=== PATIENT | female | born 1985 | race Caucasian/White ===

== ENCOUNTER 2021-12-15 16:16 | Emergency (ER) | payer MEDICAID, SELFPAY ==
[2021-12-15 16:36] VITALS: BP 158/89; PULSE 80; RESP 18; TEMP 36.7; O2SAT 99
--- NOTE | 2021-12-15 18:55 | ED.GENADUL_ITS ---
Discharge Plan Disposition Patient Disposition: HOME Condition: Good Discharge Details Clinical Impression: Dog bite of lower leg Primary Care Provider: Efrain Mitchell ED Provider: Constanza Basilio Discharge Instructions Instructions: Amoxicillin/Clavulanate Potassium (By mouth), Animal Bite (ED) Additional Instructions: Keep wound clean, dry, covered. May wash with running water and soap that she typically would. Please monitor for signs infection including redness, warmth, drainage, increased pain, fever/chills. If you develop these or other new/wo rsening symptoms to seek care urgently with again. Otherwise, continue take the Augmentin twice a day for the next 7 days. Please return in 10 days for suture removal. Referrals: Efrain Mitchell [Primary Care Provider] - Discharge Data Discharge Date/Time-TO BE ENTERED AT DEPARTURE: 12/15/21 20:51 Medical Decision Making Patient is a pleasant 35 year old female, brought in by , with c/c of dog bite to the RLE. She knows the recreation director, was working at their house at the time of the incident. States dog is UTD on vaccines, this has bene reported. She is unsure on her own vaccination status. She deneis other injury at the time of the incident. Was wearing jeans, broke skin through this. Denies numbness, tingling. No difficulty with ROM or ambulation. On exam, patient appears nontoxic. She has a 4cm curvilinear, flap laceration to the RLE. Smaller wound, likely from lower jaws, lateral to this that is more superficial. Surrounding ecchymosis. Neurovascularly intact. Patient and I discussed wound care in depth. While typically we do not close bite wounds, the wound edges are quite distracted from one another. I feel that loose approximation would be most appropriate. Patient and I discussed this in depth, particularly with regard to infection risk. Will place on abx, patient needs liquid. Wound base is able to be easily visualized, I do not see FB or debris and do not feel that imaging is warranted at this time. bite did occur through clothing. She and I discussed risks/benefits and expected procedural steps of loose closure. she is aware that she will still have scaring as this will be a functional closure rather than cosmetic. She voices understanding and wishes to proceed. Please see procedure note. Wound was cleansed by nursing staff prior to myself. I also copiously irrigated the wound and explored to base in a a bloodless field. Again, no FB or debris noted. Wound edges were loosely reapproximated with gaps between using horizontal mattress stitches. Patient started on augmentin. No tetanus on file, so this was updated today. We discussed wound care in depth. Encouraged that she return with new/worsneing issues, particulary sxs of infeciton. She will otherwise return for wound eval and suture removal. All of her questions and concerns were addressed, she is in agreement with austin madera. HPI General Date/Time Provider Initiated Documentation: 12/15/21 18:05 . Limitations to Documentation: no limitations . Information obtained by: patient, family and RN notes reviewed . History of Present Illness 35 year old F presents to the emergency department with the chief complaint of dog bite RLE, described as moderate, Quality is described as aching, and is localized to the right and lower extremity. Patient reports no radiation. Patient started experiencing this minute(s) and it has been constant. Immobilization improves symptom(s), Movement worsens symptoms . Patient notes no other symptoms.. Patient did receive the following treatments prior to arrival, none Related Data Allergies Allergy/AdvReac Type Severity Reaction Status Date / Time No Known Allergies Allergy Unverified 12/15/21 16:39 General Stated Complaint: AnimalBite SONIDO: 3 Review of Systems Constitutional Constitutional: Reports as per HPI, Denies chills and Denies fever(s) Musculoskeletal Musculoskeletal: Reports as per HPI Integumentary/Breasts Skin/Breast: Reports as per HPI Neurologic Neurologic: Reports as per HPI, Denies sensory deficit and Denies paresthesias [facility] All Active Problems (Updated 12/15/21 @ 20:24 by MACKENZIE Ruvalcaba) Dog bite of lower leg (Acute) Social History Smoking/Tobacco Use Status: Never Smoking risk assessment performed?: Yes Substance use type: does not use Do you feel safe at home: Yes Do you feel safe in your relationship?: Yes Exam Const General: cooperative, healthy appearing, comfortable, no acute distress and well developed Nutritional Appearance: average body habitus and well nourished Orientation: alert and awake Resp Effort & Inspection: normal respiratory effort, able to speak in complete sentences and no respiratory distress Cardio Rate: regular rate Rhythm: regular rhythm Skin Trauma: laceration (RLE) Neuro General: patient alert and patient awake Cognition: normal cognition Speech: speech normal Gait: normal gait Sensory Exam: no sensory deficits noted Extrem Ankle/foot/toe images: 1. Flap laceration into sub Q with 1.5cm separation of wound edges. Does not appear to hav violated muscle, fascia appears intact. No FB or debris visible. Smaller, 1cm wound that is more superficial is lateral to this. Surrounding ecchymosis. No erythema, warmth, drainage. Sensation intact. 2+ distal pulses. Full ROM, able to flex/extend, invert/lalo ankle. Psych Appearance: grossly normal and well kempt Mental Status: mental status grossly normal Speech and Movement: speech and movement normal Course Vital Signs Vital signs: Vital Signs Temperature 36.7 C 12/15/21 16:36 Pulse 80 12/15/21 16:36 Respiratory Rate 18 12/15/21 16:36 Blood Pressure 158/89 H 12/15/21 16:36 Pulse Oximetry 99 12/15/21 16:36 Temperature 36.7 C 12/15/21 16:36 Temperature Source Temporal Artery Scan 12/15/21 16:36 Pulse 80 12/15/21 16:36 Respiratory Rate 18 12/15/21 16:36 Respiratory Effort 12/15/21 16:40 Blood Pressure 158/89 H 12/15/21 16:36 Blood Pressure Position Sitting 12/15/21 16:36 Pulse Oximetry 99 12/15/21 16:36 Oxygen Delivery Method Room Air 12/15/21 16:36 Oxygen Flow Rate 0 12/15/21 16:36 Procedures Laceration Laceration 1: Site: lower extremity Side (If applicable): right Size (cm): 4 Description: irregular Depth: simple, single layer Local Anesthetic: Lidocaine 1% Amount of anesthesia used (mL): 8 Pre-repair: wound explored, irrigated extensively and deep structures i ntact Skin layer closed with: nylon Size (cm): 5-0 Number of sutures: 2 Technique: horizontal mattress PAWSS Have you Been Recently Intoxicated or Drunk Within the Last 30 days?: No Have you Ever Experienced Previous Episodes of Alcohol Withdrawal?: No Have you ever Experienced Withdrawal Seizures?: No Have you ever Experienced Delirium Tremens(DT)s?: No Have you ever undergone Alcohol Rehabilitation Treatment (i.e, inpt ot outpatient treatment programs)?: No Have you ever Experienced Blackouts?: No Have you ever Combined Alcohol with other Downers within the last 90 days?: No Have you ever Combined Alcohol with any other Substance of Abuse during the last 90 days?: No Positive Blood Alcohol level on Presentation? [PCS.BAL]: No Evidence of Increased Autonomic Activity (i.e. HR>120, tremor, sweating, agitation, nausea)?: No Result: 0
[2021-12-15] MEDS: Lidocaine 1% Multi-Dose 20 ML VIAL (19:30)
[2021-12-15] MEDS: Amoxicillin 400 MG/Clav. 57 MG 100 ML BTL 10.9 ML PO (20:35)
== END 2021-12-15 20:51 | disposition home or self-care (01) ==
PROVIDERS: Emergency Provider Physician Assistant; PCP Naturopath
DX: S81.851A Open bite, right lower leg, initial encounter (principal); Z23 Encounter for immunization; W54.0XXA Bitten by dog, initial encounter; Y92.009 Unspecified place in unspecified non-institutional (private) residence as the place of occurrence of the external cause
CPT/HCPCS: 12002; 90471; 99283; 99284; J3490